=== PATIENT | female | born 1970 | race American Indian/Alaskan Native ===

== ENCOUNTER 2016-11-27 10:30 | Day surgery (SDC) | payer OTHER ==
[2016-11-27] MEDS ORDERED: DEMEROL ONE (11:28)
[2016-11-27] MEDS ORDERED: VERSED IV ONE ×3 (11:28→13:00)
[2016-11-27] MEDS ORDERED: SUBLIMAZE ONE (11:28)
[2016-11-27] MEDS ORDERED: HURRICAINE ONE 20% TOPICAL SPRAY MM (11:28)
[2016-11-27] MEDS ORDERED: SUBLIMAZE IV ONE (11:40)
[2016-11-27] MEDS ORDERED: NACL 0.9% 500 ML 500 ML IV SCH (12:00)
[2016-11-27] MEDS ORDERED: HURRICAINE ONE 20% TOPICAL SPRAY MM NR ×2 (12:00)
[2016-11-27] MEDS ORDERED: DEMEROL IV ONE ×2 (12:00→13:00)
[2016-11-27] MEDS ORDERED: ZOFRAN ONE (12:17)
[2016-11-27] MEDS ORDERED: DEMEROL IV PRN ×2 (13:42→13:43)
[2016-11-27 14:59] VITALS: BP 116/64
== END 2016-11-27 15:20 | disposition home or self-care (01) ==
LOC: OPU 10:30 → EDSTATUS 12:00 → OPU 15:20
PROVIDERS: ATTEND Internal Medicine Cardiovascular Disease
DX: I08.3 Combined rheumatic disorders of mitral, aortic and tricuspid valves (principal)
CPT/HCPCS: 93312; 93320; 93325; J2175; J2250; J3010; J7040; J2405

== ENCOUNTER 2016-12-24 00:33 | Emergency (ER) | payer OTHER ==
[2016-12-24 01:29] LABS: Hematocrit 42.4 % (30.3-42.9); Hemoglobin 13.8 gm/dl (10.1-14.3); Mean Corpuscular HGB Conc 33 % (30-34); Mean Corpuscular Hemoglobin 30 pg (28-32); Mean Corpuscular Volume 92 fl (79-97); Platelet Count 271 K/mm3 (140-440); Red Blood Count 4.62 M/mm3 (3.65-5.03); Red Cell Distribution Width 14.4 % (13.2-15.2); White Blood Count 6.7 K/mm3 (4.5-11.0)
[2016-12-24 02:03] LABS: Anion Gap 18 mmol/L; BUN/Creatinine Ratio 23.75; Blood Urea Nitrogen 19 mg/dL (7-17); Calcium 8.9 mg/dL (8.4-10.2); Carbon Dioxide 24 mmol/L (22-30); Chloride 100.2 mmol/L (98-107); Creatine Kinase 113 units/L (30-135); Glucose 84 mg/dL (65-100); Potassium 4.2 mmol/L (3.6-5.0); Sodium 138 mmol/L (137-145)
--- NOTE | 2016-12-24 03:47 | XRay Report ---
FINAL REPORT PROCEDURE: XR CHEST ROUTINE TWO VIEW PA AND LATERAL TECHNIQUE: PA and lateral chest radiographs were obtained. CPT 84536 A total of 3 films obtained which are 2 PA views and 1 lateral view the chest HISTORY: Shortness of breath COMPARISON: No prior studies are available for comparison. FINDINGS: Heart: Normal. Mediastinum/Vessels: Slightly prominent right hilum is likely due to a slightly prominent pulmonary artery.. Lungs/Pleural space: There is mild central venous congestion but no distinct interstitial edema or focal infiltrate. There is no plain film evidence of significant pleural effusion. There is no plain film evidence of pneumothorax.. Bony thorax: No acute osseous abnormality. Other: There is minimal nonspecific elevation of the right hemidiaphragm. IMPRESSION: 1. There is mild central venous congestion but no distinct interstitial edema. 2. There is no plain film evidence of focal infiltrate significant pleural effusion.
--- NOTE | 2016-12-24 03:54 | XRay Report ---
FINAL REPORT PROCEDURE: XR SHOULDER LEFT SHOULDER THREE VIEWS TECHNIQUE: Three films obtained which are 2 AP views and 1 transscapular lateral view of left shoulder HISTORY: left shoulder pain COMPARISON: No prior studies are available for comparison. FINDINGS: There is no plain film evidence of fracture or dislocation. There is no significant degenerative change. IMPRESSION: There is no plain film evidence of fracture or dislocation or significant degenerative change in the left shoulder.
[2016-12-24 04:11] VITALS: BP 106/63
[2016-12-24] MEDS ORDERED: TORADOL IM ONE (04:18)
--- NOTE | 2016-12-24 04:23 | Emergency Department Report ---
Upper Extremity - HPI Chief Complaint: Extremity Injury, Upper Stated Complaint: LT SHOULDER AND ARM PAIN Time Seen by Provider: 12/24/16 02:06 Upper Extremity: Left Shoulder Occurred When: 4 Days Mechanism: Unsure Severity: moderate Symptoms: Yes Pain with Movement, Yes Bruising/Ecchymosis, No Deformity, No Limited Range of Movement, No Numbness, No Weakness, No Swelling, No Laceration or Abrasion Other History: 46-year-old obese -Romanian female comes in today for complaint of left shoulder pain 4 days. Patient has a past medical history of hypertension. Patient also works as a [employer]. Patient reports that she's had left shoulder pain that is not responding to ibuprofen or Aleve. Patient denies lifting or pulling on anything recent. Patient does have a primary care provider but did not follow-up with him regarding this issue. He reports that pain is worse when she is lying on the left side. She reports at times the pain is burning and throbbing sharp pains. What makes it better is when she stays off of her left side and rest his her arm. Not any recent trauma and no falls has not had anything to her shoulder. ED Review of Systems ROS: Stated complaint: LT SHOULDER AND ARM PAIN Other details as noted in HPI Constitutional: denies: chills, fever Eyes: denies: eye pain, eye discharge, vision change ENT: denies: ear pain, throat pain Respiratory: denies: cough, shortness of breath, wheezing Cardiovascular: denies: chest pain, palpitations Endocrine: no symptoms reported Gastrointestinal: denies: abdominal pain, nausea, diarrhea Genitourinary: denies: urgency, dysuria, discharge Musculoskeletal: arthralgia (left shoulder pain) Skin: denies: rash, lesions Neurological: denies: headache, weakness, paresthesias Psychiatric: denies: anxiety, depression ED Past Medical Hx - Past Medical History Previous Medical History?: Yes Hx Hypertension: Yes - Surgical History Past Surgical History?: Yes Additional Surgical History: Sinus surgery - Social History Smoking Status: Never Smoker Substance Use Type: None - Medications Home Medications: Home Medications Medication Instructions Recorded Confirmed Last Taken Type amLODIPine [Norvasc] 10 mg PO DAILY 11/27/16 12/24/16 1 Day Ago History Naproxen [Naprosyn TAB] 500 mg PO BID #30 tablet 12/24/16 Unknown Rx Upper Extremity Exam - Exam General: Vital signs noted. No distress. Alert and acting appropriately. Head and Torso: No HEENT Abnormality, No Neck Tenderness, No Chest/Lungs Abnormality, No Abdominal Tenderness, No Back Tenderness Shoulder Exam: Yes Normal Range of Motion in Shoulder, No Shoulder Tenderness ( pain in the scapular area lateral portion), No Clavicle Tenderness, No Shoulder Deformity, No AC Joint Tenderness Arm Exam: No Arm/Humerus Tenderness, No Arm Deformity Elbow: Yes Normal Range of Motion in Elbow, No Elbow Tenderness, No Elbow Deformity Forearm: No Forearm Tenderness, No Forearm Deformity, No Pain with Pronation, No Pain with Supination Wrist: Yes Normal ROM in Wrist, No Wrist Tenderness, No Wrist Deformity, No Snuffbox Tenderness, No Pain with Axial Thumb Compression Hand: Yes Normal ROM in Digit(s), No Hand Tenderness, No Hand Deformity, No Digit Tenderness, No Digit(s) Deformity, No Tendon Dysfunction CMS Exam: Yes Normal Distal Pulses, Yes Normal Capillary Refill, No Broken Skin ED Course Vital Signs 12/24/16 04:10 Pulse Rate 70 Respiratory 20 Rate Blood Pressure 106/63 [Right] O2 Sat by Pulse 97 Oximetry ED Medical Decision Making - Lab Data Result diagrams: 12/24/16 01:16 12/24/16 01:16 - Radiology Data Radiology results: report reviewed, image reviewed There is no plain film evidence of fracture or dislocation or significant degenerative changes in the left shoulder - Medical Decision Making Assessment evaluated by this provider fast track. Discussed with patient that we will give her Toradol injection. Also discussed with patient that she needs to be evaluated by her primary care provider who may then can recommend her to physical therapy. Discussed patient to take ibuprofen or naproxen for pain control. Discussed with patient that lifting and pulling of patient's picking up heavy objects may aggravate her pain. Patient verbalized understanding Critical care attestation.: If time is entered above; I have spent that time in minutes in the direct care of this critically ill patient, excluding procedure time. ED Disposition Clinical Impression: Morbid obesity with body mass index of 50 or higher, Pain of left scapula Disposition: DISCHARGED TO HOME OR SELFCARE Is pt being admited?: No Does the pt Need Aspirin: No Condition: Stable Instructions: Shoulder Sprain (ED) Additional Instructions: These take the pain medication as prescribed. Please follow up to primary care provider for further evaluations and possible physical therapy. Prescriptions: Naproxen [Naprosyn TAB] 500 mg PO BID #30 tablet Referrals: PRIMARY CARE, [Primary Care Provider] - 3-5 Days Forms: Work/School Release Form(ED)
== END 2016-12-24 04:41 | disposition home or self-care (01) ==
LOC: ED 00:33
DX: M25.512 Pain in left shoulder (principal); E66.01 Morbid (severe) obesity due to excess calories; Z68.43 Body mass index [BMI] 50.0-59.9, adult; I10 Essential (primary) hypertension
CPT/HCPCS: 36415; 71020; 73030; 80048; 82550; 82553; 84484; 85025; 93005; 93010; 96372; 99284; J1885

== ENCOUNTER 2017-04-22 08:16 | Day surgery (SDC) | payer OTHER ==
[2017-04-22] MEDS ORDERED: ECOTRIN PO ONE (09:00)
[2017-04-22] MEDS ORDERED: NACL 0.9% 500 ML 500 ML IV SCH (09:00)
[2017-04-22 09:50] LABS: Basophils % (Auto) 0.8 % (0.0-1.8); Eosinophils % (Auto) 2.3 % (0.0-4.3); Hematocrit 40.6 % (30.3-42.9); Mean Corpuscular HGB Conc 32 % (30-34); Mean Corpuscular Hemoglobin 29 pg (28-32); Mean Corpuscular Volume 92 fl (79-97); Platelet Count 259 K/mm3 (140-440); Red Blood Count 4.43 M/mm3 (3.65-5.03); White Blood Count 5.4 K/mm3 (4.5-11.0)
[2017-04-22 09:57] LABS: Anion Gap 16 mmol/L; BUN/Creatinine Ratio 16.66; Blood Urea Nitrogen 10 mg/dL (7-17); Calcium 8.4 mg/dL (8.4-10.2); Carbon Dioxide 27 mmol/L (22-30); Chloride 102.7 mmol/L (98-107); Glucose 93 mg/dL (65-100); Potassium 4.5 mmol/L (3.6-5.0); Sodium 141 mmol/L (137-145)
[2017-04-22 10:00] LABS: INR 0.96 (0.87-1.13)
[2017-04-22] MEDS ORDERED: HEPARIN/NS 5000 UNIT/500ML(CATH LAB) 1,000 ML IR ONE (10:20)
[2017-04-22] MEDS: SUBLIMAZE ONE ×3 (10:45→11:05)
[2017-04-22] MEDS: HEPARIN 10,000 UNITS/10 ML ONE ×2 (10:45→11:04)
[2017-04-22] MEDS: VERSED ONE ×3 (10:45→11:05)
[2017-04-22] MEDS: CALAN ONE ×2 (10:45→11:04)
[2017-04-22] MEDS: XYLOCAINE 2% INFILTRATI ONE ×2 (10:46→10:56)
[2017-04-22] MEDS: NITROGLYCERIN SYRINGE 3 ML ONE ×2 (10:46→11:04)
--- NOTE | 2017-04-22 11:26 | Short Stay Summary ---
Short Stay Documentation Date of service: 04/22/17 - History H&P: obtained from office - Allergies and Medications Current Medications: Allergies No Known Allergies Allergy (Verified 04/22/17 08:49) Home Medications Medication Instructions Recorded Confirmed Last Taken Type amLODIPine [Norvasc] 10 mg PO DAILY 11/27/16 04/22/17 04/21/17 History Aspirin [Aspirin TAB] 325 mg PO QDAY 04/22/17 04/22/17 04/21/17 History Active Medications Sodium Chloride (Nacl 0.9% 500 Ml) 500 mls @ 50 mls/hr IV DIRECT SHANNON Stop: 04/22/17 18:59 Last Admin: 04/22/17 10:16 Dose: 50 mls/hr - Brief post op/procedure progress note Date of procedure: 04/22/17 Pre-op diagnosis: MS Post-op diagnosis: same Procedure: C - see cath report Anesthesia: local Estimated blood loss: none Condition: stable - Disposition Condition at discharge: Stable Disposition: DC-01 TO HOME OR SELFCARE - Discharge Diagnoses (1) Mitral stenosis Status: Chronic Qualifiers: Cardiac valve disease etiology: C Short Stay Discharge Plan Activity: advance as tolerated Diet: low fat, low cholesterol, low salt Wound: open to air, keep clean and dry, per your surgeon's advice Follow up with: CARRIE RICHMOND MD [Staff Physician] - 7 Days
--- NOTE | 2017-04-22 12:40 | Cardiac Catherization Report ---
CARDIAC CATHETERIZATION REFERRING PHYSICIAN: Jas Monroe MD INDICATION FOR PROCEDURE: The patient is a pleasant 46-year-old female who has a history of mitral stenosis, seen Dr. Monroe and seen Dr. Macias at [place] and is scheduled to undergo mitral valve replacement for severe mitral stenosis. She is referred for left heart catheterization and coronary angiography in anticipation of the same. Risks, benefits, and alternatives discussed prior to obtaining informed consent. PROCEDURE IN DETAIL: The patient was brought to catheterization lab in a postabsorptive state, prepped and draped in sterile fashion. Jimmy's test in right hand was normal. A 2 mL of 2% lidocaine used to anesthetize the right wrist. A standard 6-[place] hydrophilic sheath used to cannulate the right radial artery via modified Seldinger technique. All exchanges performed to exchange a J-tip guidewire. JL3.5 catheter used to engage the left main. No dampening or ventricularization. Cineangiography performed in multiple projections. JR4 catheter used to cross the aortic valve under fluoroscopic guidance. Left ventriculography performed in 30 BROWN and 30 ORESTES projections via hand injections, catheter flushed. Manual pullback performed with continuous pressure monitoring. Catheter used to engage the right coronary. No dampening or ventricularization. Cineangiography performed in all projections. Next, catheter removed from the body of wire, sheath removed, manual pressured used to achieve hemostasis. DATA: Aortic pressure is 120/70, LV pressure is 120, LVEDP of 15 mmHg. Left ventriculography revealed normal systolic performance with estimated ejection fraction of 55% to 60%. No evidence of aortic stenosis. CORONARY ANATOMY: This is a codominant system. The left circumflex and left anterior descending appeared to have a separate ostia or a very short left main. The left circumflex is a moderate sized vessel, no significant disease. LAD is a moderate sized vessel, courses the anterior interventricular groove, wraps around the apex, no significant disease. The right coronary is a moderate sized vessel, courses AV groove, distally bifurcates in the posterior descending and posterolateral branch. No discrete stenosis identified. CONCLUSIONS: 1. No angiographic evidence of significant epicardial coronary artery disease in this codominant system. 2. Normal left ventricular systolic performance with estimated ejection fraction of 55% to 60%. No evidence of aortic stenosis. The patient will follow up with Dr. Monroe and Dr. Dennison. Results of procedure explained in length to the patient and family. All questions and concerns were addressed. JOB# [id number] MAMIE/NTS
[2017-04-22 13:29] VITALS: BP 117/77
== END 2017-04-22 14:05 | disposition home or self-care (01) ==
LOC: CATHLABREC 08:16
PROVIDERS: ATTEND Internal Medicine
DX: I05.0 Rheumatic mitral stenosis (principal); I10 Essential (primary) hypertension; E66.01 Morbid (severe) obesity due to excess calories; Z68.43 Body mass index [BMI] 50.0-59.9, adult; Z98.890 Other specified postprocedural states; Z79.899 Other long term (current) drug therapy; Z72.89 Other problems related to lifestyle; Z79.82 Long term (current) use of aspirin
CPT/HCPCS: 36415; 80048; 85025; 85610; 85730; 93005; 93010; 93458; C1894; J1644; J2250; J3010; J7040; Q9967

== ENCOUNTER 2017-06-22 18:18 | Emergency (ER) | payer OTHER ==
[2017-06-22 19:03] LABS: Basophils % (Auto) 1.2 % (0.0-1.8); Eosinophils % (Auto) 3.1 % (0.0-4.3); Hematocrit 29.1 % (30.3-42.9); Hemoglobin 9.5 gm/dl (10.1-14.3); Mean Corpuscular HGB Conc 33 % (30-34); Mean Corpuscular Hemoglobin 29 pg (28-32); Mean Corpuscular Volume 88 fl (79-97); Platelet Count 626 K/mm3 (140-440); Red Cell Distribution Width 15.5 % (13.2-15.2)
[2017-06-22 19:15] LABS: INR 2.43 (0.87-1.13)
[2017-06-22 19:16] LABS: Partial Thromboplastin Time 47.8 Sec. (24.2-36.6)
[2017-06-22 19:21] LABS: Anion Gap 19 mmol/L; BUN/Creatinine Ratio 15; Blood Urea Nitrogen 9 mg/dL (7-17); Calcium 8.8 mg/dL (8.4-10.2); Carbon Dioxide 25 mmol/L (22-30); Chloride 99.8 mmol/L (98-107); Glucose 119 mg/dL (65-100); Potassium 3.9 mmol/L (3.6-5.0); Sodium 140 mmol/L (137-145)
[2017-06-22 19:24] LABS: Creatine Kinase MB 2.1 ng/mL (0.0-4.0)
[2017-06-22] MEDS ORDERED: MORPHINE IV ONE (20:25)
--- NOTE | 2017-06-22 20:50 | Emergency Department Report ---
ED Chest Pain HPI - General Chief Complaint: Chest Pain Stated Complaint: CHEST PAIN Time Seen by Provider: 06/22/17 20:45 Source: patient, EMS Mode of arrival: Stretcher Limitations: No Limitations - History of Present Illness Initial Comments: 47 YO FEMALE WITH MITRAL VALVE REPLACEMENT DONE BY DR ROMEO ON 06-06-17 AT [facility], HERE WITH C/O CHEST PAIN . DENIES SHORT OF BREATH, NO NAUSEA, VOMITING. MD Complaint: chest pain -: Sudden, hour(s) (1) Onset: during rest Pain Location: substernal Pain Radiation: LUE Severity: moderate, severe Severity scale (0 -10): 3 Quality: heaviness, pressure Consistency: constant (but decreasing) Improves With: nothing Worsens With: movement - Related Data Home Medications Medication Instructions Recorded Confirmed Last Taken amLODIPine [Norvasc] 10 mg PO DAILY 11/27/16 04/22/17 04/21/17 Aspirin [Aspirin TAB] 325 mg PO QDAY 04/22/17 04/22/17 04/21/17 Allergies Allergy/AdvReac Type Severity Reaction Status Date / Time No Known Allergies Allergy Verified 04/22/17 08:49 Heart Score - HEART Score History: Highly suspicious EKG: Non-specific Age: 45-65 Risk factors: > 3 risk factors or hx of atherosclerotic disease Troponin: < normal limit HEART Score: 6 ED Review of Systems ROS: Stated complaint: CHEST PAIN Other details as noted in HPI Constitutional: denies: chills, fever Eyes: denies: eye pain, eye discharge, vision change ENT: denies: ear pain, throat pain Respiratory: denies: cough, orthopnea (but taking shallow breaths), shortness of breath, SOB with exertion, SOB at rest, wheezing Cardiovascular: denies: chest pain, palpitations, dyspnea on exertion (pt has not ambulated at home since discharge) Endocrine: no symptoms reported Gastrointestinal: denies: abdominal pain, nausea, diarrhea Genitourinary: denies: urgency, dysuria, discharge Musculoskeletal: denies: back pain, joint swelling, arthralgia Skin: denies: rash, lesions Neurological: denies: headache, weakness, paresthesias Psychiatric: anxiety. denies: depression Hematological/Lymphatic: denies: easy bleeding, easy bruising ED Past Medical Hx - Past Medical History Previous Medical History?: Yes Hx Hypertension: Yes - Surgical History Past Surgical History?: Yes Additional Surgical History: ,mitral valve replacement 06-06-17 at [facility] ; mechanical mitral valve; Sinus surgery - Social History Smoking Status: Never Smoker - Medications Home Medications: Home Medications Medication Instructions Recorded Confirmed Last Taken Type amLODIPine [Norvasc] 10 mg PO DAILY 11/27/16 04/22/17 04/21/17 History Aspirin [Aspirin TAB] 325 mg PO QDAY 04/22/17 04/22/17 04/21/17 History ED Physical Exam - General Limitations: No Limitations General appearance: alert, in no apparent distress, anxious, obese (morbidly) - Head Head exam: Present: atraumatic, normocephalic - Eye Eye exam: Present: normal appearance - ENT ENT exam: Present: mucous membranes moist - Neck Neck exam: Present: normal inspection - Respiratory Respiratory exam: Present: normal lung sounds bilaterally, chest wall tenderness (frensh surgical incision, pus from incision near right breast). Absent: respiratory distress - Cardiovascular Cardiovascular Exam: Present: regular rate, normal rhythm. Absent: systolic murmur, diastolic murmur, rubs, gallop - GI/Abdominal GI/Abdominal exam: Present: soft, normal bowel sounds - Rectal Rectal exam: Present: deferred - Extremities Exam Extremities exam: Present: normal inspection - Back Exam Back exam: Present: normal inspection - Neurological Exam Neurological exam: Present: alert, oriented X3 - Psychiatric Psychiatric exam: Present: normal affect, normal mood - Skin Skin exam: Present: warm, normal color, other (midline sternotomy incision with rafa in place , right lower incision near right breast with pus drainage, excoriated breasts withthe right greater thanthe legft). Absent: rash ED Course Vital Signs 06/22/17 06/22/17 18:34 19:30 Temperature 98.2 F Pulse Rate 83 Respiratory 22 Rate Blood Pressure 152/98 Blood Pressure 136/62 [Left] O2 Sat by Pulse 99 Oximetry ED Medical Decision Making - Lab Data Result diagrams: 06/22/17 18:54 06/22/17 18:54 Critical care attestation.: If time is entered above; I have spent that time in minutes in the direct care of this critically ill patient, excluding procedure time. ED Disposition Clinical Impression: Chest pain Qualifiers: Chest pain type: other chest pain Qualified Code(s): R07.89 - Other chest pain ; R07.8 - Other chest pain Infected incision Qualifiers: Encounter type: initial encounter Qualified Code(s): T81.4XXA - Infection following a procedure, initial encounter Anemia Qualifiers: Anemia type: unspecified type Qualified Code(s): D64.9 - Anemia, unspecified Disposition: DC/TX-70 ANOTHER TYPE HLTHCARE Is pt being admited?: Yes Does the pt Need Aspirin: Yes Condition: Serious Instructions: Chest Pain (ED) Referrals: LORA PALOMO MD [Primary Care Provider] - 3-5 Days Time of Disposition: 20:57 (DR EDWARDS FROM [facility] A CARDIO THORACIC SURGEON HAS ACCEPTED ANDARRANGED A BED FOR HER.)
[2017-06-22 21:13] VITALS: BP 122/78
== END 2017-06-22 21:14 | disposition other institution (70) ==
LOC: ED 18:18
DX: R07.2 Precordial pain (principal); T81.4XXA Infection following a procedure, initial encounter; D64.9 Anemia, unspecified; I10 Essential (primary) hypertension; Z79.82 Long term (current) use of aspirin
CPT/HCPCS: 36415; 80048; 82550; 82553; 84484; 85025; 85379; 85610; 85730; 93005; 93010; 96374; 99285; J2270

== ENCOUNTER 2017-11-19 07:29 | Inpatient (IN) | payer OTHER ==
--- NOTE | 2017-11-19 08:25 | XRay Report ---
ROUTINE CHEST, TWO VIEWS: HISTORY: Shortness of breath. Compared to 12/24/16. There is poor inspiration with minor bibasilar atelectatic changes. No evidence for infiltrate, pleural effusion or pneumothorax. Heart size is stable at the upper limits of normal. Normal pulmonary vascularity. The bony structures are grossly intact. Previous thoracic surgery changes are noted, correlate with history. IMPRESSION: Unremarkable chest x-ray. Poor inspiration with mild bibasilar atelectasis.
[2017-11-19 08:32] LABS: Basophils % (Auto) 0.8 % (0.0-1.8); Eosinophils # (Auto) 0.2 K/mm3 (0.0-0.4); Hematocrit 43.6 % (30.3-42.9); Hemoglobin 13.9 gm/dl (10.1-14.3); Lymphocytes # (Auto) 1.9 K/mm3 (1.2-5.4); Lymphocytes % (Auto) 36.1 % (13.4-35.0); Mean Corpuscular HGB Conc 32 % (30-34); Mean Corpuscular Hemoglobin 26 pg (28-32); Mean Corpuscular Volume 83 fl (79-97); Monocytes # (Auto) 0.7 K/mm3 (0.0-0.8); Platelet Count 256 K/mm3 (140-440); Red Blood Count 5.26 M/mm3 (3.65-5.03); Red Cell Distribution Width 22.1 % (13.2-15.2)
[2017-11-19 08:33] LABS: BUN/Creatinine Ratio 16; Blood Urea Nitrogen 11 mg/dL (7-17); Calcium 8.8 mg/dL (8.4-10.2); Hemolysis Index 10
[2017-11-19] MEDS ORDERED: DUONEB *Not for PRN Use IH ONE (10:20)
[2017-11-19 10:50] LABS: INR 1.96 (0.87-1.13)
[2017-11-19 10:51] LABS: Partial Thromboplastin Time 33.5 Sec. (24.2-36.6)
--- NOTE | 2017-11-19 11:09 | Emergency Department Report ---
HPI - General Chief Complaint: Dyspnea/Respdistress Time Seen by Provider: 11/19/17 10:03 - HPI HPI: 47-year-old female presents to the emergency department after being sent in by her injection specialist, Dr. Ramirez, with a complaint of acute on chronic shortness of breath. Patient has a history of hypertension, GERD, sleep apnea, COPD versus chronic bronchitis, and a history of mitral valve replacement in June at [facility]. Her primary care physician is Dr. Alvin Clark and her manpower development manager is Dr. Monroe. The shortness of breath has been going on for many months but more recently it has worsened. The shortness of breath worsens with exertion and sometimes she has trouble going short distances without increased shortness of breath. She also has been having some increased lower extremity swelling. No recent travel or sick contacts at home. She denies any fever, chest pain, cough, nausea, vomiting. She has been using some inhaler and nebulizer treatments at home with some transient relief. ED Past Medical Hx - Past Medical History Previous Medical History?: Yes Hx Hypertension: Yes Hx GERD: Yes Hx COPD: Yes Additional medical history: Sleep apnea - Surgical History Past Surgical History?: Yes Additional Surgical History: ,mitral valve replacement 06-06-17 at [facility] ; mechanical mitral valve; Sinus surgery - Social History Smoking Status: Former Smoker Substance Use Type: Alcohol, Marijuana, Prescribed - Medications Home Medications: Home Medications Medication Instructions Recorded Confirmed Last Taken Type Aspirin [Aspirin TAB] 325 mg PO QDAY 04/22/17 11/19/17 11/19/17 History ALBUTEROL Inhaler [Proair] 2 puff IH QID PRN 11/19/17 11/19/17 11/19/17 History Aspirin [Lo-Dose Aspirin EC] 81 mg PO DAILY 11/19/17 11/19/17 11/19/17 History Metoprolol [Lopressor] 25 mg PO DAILY 11/19/17 11/19/17 11/19/17 History Multivitamin with Folic Acid [One 400 mcg PO DAILY 11/19/17 11/19/17 11/19/17 History Daily Multivitamin Tablet] Warfarin [Coumadin] 7.5 mg PO QDAY 11/19/17 11/19/17 11/19/17 History ED Review of Systems ROS: Stated complaint: SOB Other details as noted in HPI Comment: All other systems reviewed and negative Constitutional: denies: chills, fever Eyes: denies: eye pain, eye discharge, vision change ENT: denies: ear pain, throat pain Respiratory: shortness of breath, SOB with exertion Cardiovascular: edema. denies: chest pain, palpitations Gastrointestinal: denies: abdominal pain, nausea, diarrhea Genitourinary: denies: urgency, dysuria, discharge Musculoskeletal: denies: back pain, joint swelling, arthralgia Skin: denies: rash, lesions Neurological: denies: headache, weakness, paresthesias Physical Exam - Physical Exam Vital Signs: Vital Signs 11/19/17 11/19/17 11/19/17 07:46 10:21 10:35 Temperature 98.3 F 98.2 F Pulse Rate 70 55 L Respiratory 18 16 Rate Blood Pressure 150/95 Blood Pressure 175/93 [Left] O2 Sat by Pulse 96 96 96 Oximetry Physical Exam: GENERAL: The patient is well-developed well-nourished. HENT: Normocephalic. Atraumatic. Patient has moist mucous membranes. EYES: Extraocular motions are intact. Pupils equal reactive to light bilaterally. NECK: Supple. Trachea is midline. CHEST/LUNGS: Clear to auscultation. There is no respiratory distress noted. HEART/CARDIOVASCULAR: Regular. There is no tachycardia. There is no murmur. ABDOMEN: Abdomen is soft, nontender. Patient has normal bowel sounds. Morbidly obese habitus. SKIN: 2+ pitting edema to the bilateral lower extremities. NEURO: The patient is awake, alert, and oriented. The patient is cooperative. The patient has no focal neurologic deficits. The patient has normal speech. MUSCULOSKELETAL: There is no tenderness or deformity. There is no limitation range of motion. There is no evidence of acute injury. ED Course Vital Signs 11/19/17 11/19/17 11/19/17 07:46 10:21 10:35 Temperature 98.3 F 98.2 F Pulse Rate 70 55 L Respiratory 18 16 Rate Blood Pressure 150/95 Blood Pressure 175/93 [Left] O2 Sat by Pulse 96 96 96 Oximetry ED Medical Decision Making - Lab Data Result diagrams: 11/19/17 08:08 11/19/17 08:08 - EKG Data -: EKG Interpreted by Me EKG shows normal: sinus rhythm, axis, intervals, QRS complexes, ST-T waves Rate: normal - EKG Data When compared to previous EKG there are: previous EKG unavailable Interpretation: normal EKG - Radiology Data Radiology results: image reviewed interpreted by me: Chest x-ray does not show any acute process. There are no pleural effusions, obvious pneumonia and there is no pneumothorax. - Medical Decision Making Patient presents with acute on chronic shortness of breath and some lower extremity edema, sent in by pulmonology. Labs are mostly unremarkable. She does have a BNP of about 450 and does have some lower extremity edema but no pleural effusions on chest x-ray. Patient is pretty much therapeutic on her warfarin and therefore there is a low suspicion of pulmonary embolism as the source of her shortness of breath. Chest x-ray does not show any pneumonia, pneumothorax or any other acute processes. EKG does not show any ST elevation MA. As the patient was sent in by her injection specialist for further evaluation and treatment, we will keep her in the hospital. - Differential Diagnosis Pneumonia, CHF, COPD, Obesity hypoventilation syndrome Critical Care Time: No Critical care attestation.: If time is entered above; I have spent that time in minutes in the direct care of this critically ill patient, excluding procedure time. ED Disposition Clinical Impression: Lower extremity edema, Anticoagulant long-term use, Morbidly obese Hypertension Qualifiers: Hypertension type: essential hypertension Qualified Code(s): I10 - Essential ( primary) hypertension Dyspnea Qualifiers: Dyspnea type: shortness of breath Qualified Code(s): R06.02 - Shortness of breath; R06.00 - Dyspnea, unspecified; R06.01 - Orthopnea Disposition: OP ADMIT IP TO THIS HOSP Is pt being admited?: Yes Condition: Stable Time of Disposition: 14:06
--- NOTE | 2017-11-19 12:24 | History and Physical Report ---
History of Present Illness Chief complaint: I cant breathe right History of present illness: 47 YO Female with MO, Pulmonary HTN, HTN, GERD, CLINT, Obesity Hypoventillation, MVS S/P MVR at [facility] 06/17. presents to ED for evaluation. Pt states that she has experienced shortness of breath for the past 2 months with worsening symptoms over the past 1 week. Pt acknowledges dypsnea with exertion, decreased exercise tolerance, and bilateral leg swelling. Pt denies fever, chills, CP, Palpitations, NVD, Trauma, BRBPR, Recent ill contacts, productive cough, unilateral leg swelling, calf pain, prolonged travel/immobility, individual/family history of DVT/PE, hemoptysis. Pt seen and evaluated in ED and found to have Acute respiratory failure, as well as hypertensive urgency, as well as pulmonary hypertension. Pt admitted to medical floor with remote telemetry. Cardiology consulted in ED. Past History Past Medical History: GERD, hypertension, other (Pulmonary Hypertension, obesity Hypoventillation, CLINT,MVS) Past Surgical History: valve replacement Social history: single. denies: smoking, alcohol abuse, prescription drug abuse Family history: hypertension Medications and Allergies Allergies Allergy/AdvReac Type Severity Reaction Status Date / Time No Known Allergies Allergy Verified 04/22/17 08:49 Home Medications Medication Instructions Recorded Confirmed Last Taken Type Aspirin [Aspirin TAB] 325 mg PO QDAY 04/22/17 11/19/17 11/19/17 History ALBUTEROL Inhaler [Proair] 2 puff IH QID PRN 11/19/17 11/19/17 11/19/17 History Aspirin [Lo-Dose Aspirin EC] 81 mg PO DAILY 11/19/17 11/19/17 11/19/17 History Metoprolol [Lopressor] 25 mg PO DAILY 11/19/17 11/19/17 11/19/17 History Multivitamin with Folic Acid [One 400 mcg PO DAILY 11/19/17 11/19/17 11/19/17 History Daily Multivitamin Tablet] Warfarin [Coumadin] 7.5 mg PO QDAY 11/19/17 11/19/17 11/19/17 History Review of Systems Constitutional: no weight loss, no weight gain, no fever, no chills Ears, nose, mouth and throat: no ear pain, no ear discharge, no tinnitis, no decreased hearing, no nose pain, no nasal congestion Breasts: no change in shape, no swelling, no mass Cardiovascular: edema, shortness of breath, dyspnea on exertion, high blood pressure, no chest pain, no orthopnea, no palpitations, no paroxysmal nocturnal dyspnea Respiratory: no cough, no cough with sputum, no excessive sputum, no hemoptysis Gastrointestinal: no nausea, no vomiting, no diarrhea, no constipation, no change in bowel habits Genitourinary Female: no dysmenorrhea, no pelvic pain, no flank pain, no menorrhagia, no dysuria, no urinary frequency, no urgency Rectal: no pain, no incontinence, no bleeding Musculoskeletal: no neck stiffness, no neck pain, no shooting arm pain, no arm numbness/tingling, no low back pain, no shooting leg pain, no leg numbness/ tingling Integumentary: no rash, no pruritis, no redness, no sores, no wounds, no jaundice, no boils Neurological: no transient paralysis, no paralysis, no weakness, no parathesias , no numbness, no tingling, no seizures, no syncope Psychiatric: no anxiety, no memory loss, no change in sleep habits, no insomnia , no hypersomnia, no change in appetite Endocrine: no cold intolerance, no heat intolerance, no polyphagia, no excessive thirst, no polydipsia, no polyuria, no nocturia, no excessive sweating Hematologic/Lymphatic: no easy bruising, no easy bleeding, no lymphadenopathy, no lymphedema Allergic/Immunologic: no urticaria, no allergic rhinitis, no wheezing, no persistent infections, no anaphylaxis, no angioedema Exam - Constitutional Vitals: Temp Pulse Resp BP Pulse Ox 98.2 F 60 13 187/94 96 11/19/17 10:35 11/19/17 12:00 11/19/17 12:00 11/19/17 12:00 11/19/17 12:00 General appearance: Present: mild distress, obese - EENT Eyes: Present: PERRL ENT: hearing intact, clear oral mucosa - Neck Neck: Present: supple, normal ROM - Respiratory Respiratory effort: normal Respiratory: bilateral: diminished - Cardiovascular Heart Sounds: Present: S1 & S2. Absent: rub, click - Extremities Extremities: pulses symmetrical, No edema Extremity abnormal: edema Peripheral Pulses: within normal limits - Abdominal General gastrointestinal: Present: soft, non-tender, non-distended, normal bowel sounds Female genitourinary: Present: normal - Integumentary Integumentary: Present: clear, warm, dry - Musculoskeletal Musculoskeletal: gait normal, strength equal bilaterally - Psychiatric Psychiatric: appropriate mood/affect, intact judgment & insight - Neurologic Neurologic: CNII-XII intact, moves all extremities Results - Labs CBC & Chem 7: 11/19/17 08:08 11/19/17 08:08 Labs: Abnormal lab results 11/19/17 11/19/17 11/19/17 Range/Units 08:08 08:08 08:08 RBC 5.26 H (3.65-5.03) M/mm3 Hct 43.6 H (30.3-42.9) % MCH 26 L (28-32) pg RDW 22.1 H (13.2-15.2) % Lymph % (Auto) 36.1 H (13.4-35.0) % [place] % (Auto) 13.0 H (0.0-7.3) % PT 23.6 H (12.2-14.9) Sec. INR 1.96 H (0.87-1.13) NT-Pro-B Natriuret Pep 458.6 H (0-450) pg/mL Assessment and Plan - Patient Problems (1) Respiratory failure Current Visit: Yes Status: Acute Qualifiers: Chronicity: acute Respiratory failure complication: hypoxia Qualified Code(s): J96.01 - Acute respiratory failure with hypoxia Plan to address problem: Supplemental oxygen, nebulizer therapy, pulse oximetry, NIPPV as clinically indicated, (2) COPD with exacerbation Current Visit: Yes Status: Acute Plan to address problem: supplemental oxygen, nebulizer therapy, IV antibiotic therapy, IV steroid therapy, (3) Pulmonary hypertension Current Visit: Yes Status: Acute Plan to address problem: supplemental oxygen, pain control, outpatient pulmonary f/U care. (4) Mitral valve disease Current Visit: Yes Status: Acute Plan to address problem: Cardiology consulted, supplemental oxygen, supportive care (5) Morbidly obese Current Visit: Yes Status: Acute Plan to address problem: balanced diet, increased physical activity at discharge, Outpatient bariatric surgery f/u. (6) Obesity hypoventilation syndrome Current Visit: Yes Status: Acute Plan to address problem: supplemental oxygen, nebulizer therapy, NIPPV as clinically indicated, incentive spirometry, pulmonary toilet. (7) DVT prophylaxis Current Visit: No Status: Acute
[2017-11-19] MEDS ORDERED: PROVENTIL IH PRN (12:27)
[2017-11-19] MEDS ORDERED: SODIUM CHLORIDE FLUSH SYRINGE 10 ML IV PRN (12:27)
[2017-11-19] MEDS ORDERED: TYLENOL PO PRN (12:27)
[2017-11-19] MEDS ORDERED: ZOFRAN IV PRN (12:27)
[2017-11-19] MEDS ORDERED: MAGNESIUM SULFATE IV ONE (12:31)
[2017-11-19] MEDS ORDERED: PROAIR IH PRN (12:32)
[2017-11-19] MEDS ORDERED: MAGNESIUM SULFATE 1 GM in NACL 0.9% 50 ML IV ONE (14:00)
[2017-11-19] MEDS ORDERED: LOPRESSOR ONE (14:59)
[2017-11-19] MEDS ORDERED: THERAGRAN Tab PO ONE (14:59)
[2017-11-19] MEDS: ASPIRIN PO SCH (15:25)
[2017-11-19] MEDS: LOPRESSOR PO SCH (15:25)
[2017-11-19] MEDS: THERAGRAN Tab PO SCH (15:25)
[2017-11-19] MEDS: COUMADIN PO SCH (17:07)
[2017-11-19] MEDS: SODIUM CHLORIDE FLUSH SYRINGE 10 ML IV SCH (22:21)
[2017-11-20 06:00] LABS: INR 2.23 (0.87-1.13)
[2017-11-20] MEDS: ASPIRIN PO SCH (09:12)
[2017-11-20] MEDS: LOPRESSOR PO SCH ×2 (09:13→22:30)
[2017-11-20] MEDS: ZITHROMAX 500 MG in NACL 0.9% 250ML 250 ML IV SCH ×3 (09:30→09:31)
--- NOTE | 2017-11-20 09:38 | Progress Note ---
Assessment and Plan Assessment and plan: Acute hypoxemic Respiratory failure Supplemental oxygen, nebulizer therapy, pulse oximetry, NIPPV as clinically indicated. CTA of the chest pending. Pulmonary consultation. COPD with exacerbation supplemental oxygen, nebulizer therapy, IV antibiotic therapy, IV steroid therapy, Pulmonary hypertension supplemental oxygen, pain control, outpatient pulmonary f/U care. CTA of the chest pending. Patient currently on Coumadin Mitral valve disease Cardiology consulted, supplemental oxygen, supportive care. S/P MVR at [facility] 06/17 for mitral valve stenosis Morbidly obese balanced diet, increased physical activity at discharge, Outpatient bariatric surgery f/u. Obesity hypoventilation syndrome supplemental oxygen, nebulizer therapy, NIPPV as clinically indicated, incentive spirometry, pulmonary toilet. DVT prophylaxis Patient on Coumadin History Interval history: No new issues overnight. Hospitalist Physical - Constitutional Vitals: Temp Pulse Resp BP Pulse Ox 97.6 F 67 22 166/69 96 11/20/17 07:59 11/20/17 07:59 11/20/17 07:59 11/20/17 07:59 11/20/17 07:59 General appearance: Present: no acute distress, obese - EENT Eyes: Present: PERRL, EOM intact ENT: hearing intact, clear oral mucosa, dentition normal - Neck Neck: Present: supple, normal ROM - Respiratory Respiratory effort: normal Respiratory: bilateral: CTA - Cardiovascular Rhythm: regular Heart Sounds: Present: S1 & S2. Absent: gallop, rub - Extremities Extremities: no ischemia, No edema, Full ROM - Abdominal General gastrointestinal: soft, non-tender, non-distended, normal bowel sounds - Integumentary Integumentary: Present: clear, warm, dry - Neurologic Neurologic: CNII-XII intact, moves all extremities Results - Labs CBC & Chem 7: 11/19/17 08:08 11/19/17 08:08 Labs: Laboratory Last Values WBC 5.4 K/mm3 (4.5-11.0) 11/19/17 08:08 RBC 5.26 M/mm3 (3.65-5.03) H 11/19/17 08:08 Hgb 13.9 gm/dl (10.1-14.3) 11/19/17 08:08 Hct 43.6 % (30.3-42.9) H 11/19/17 08:08 MCV 83 fl (79-97) 11/19/17 08:08 MCH 26 pg (28-32) L 11/19/17 08:08 MCHC 32 % (30-34) 11/19/17 08:08 RDW 22.1 % (13.2-15.2) H 11/19/17 08:08 Plt Count 256 K/mm3 (140-440) 11/19/17 08:08 Lymph % (Auto) 36.1 % (13.4-35.0) H 11/19/17 08:08 [place] % (Auto) 13.0 % (0.0-7.3) H 11/19/17 08:08 Eos % (Auto) 3.0 % (0.0-4.3) 11/19/17 08:08 Baso % (Auto) 0.8 % (0.0-1.8) 11/19/17 08:08 Lymph # 1.9 K/mm3 (1.2-5.4) 11/19/17 08:08 [place] # 0.7 K/mm3 (0.0-0.8) 11/19/17 08:08 Eos # 0.2 K/mm3 (0.0-0.4) 11/19/17 08:08 Baso # 0.0 K/mm3 (0.0-0.1) 11/19/17 08:08 Seg Neutrophils % 47.1 % (40.0-70.0) 11/19/17 08:08 Seg Neutrophils # 2.5 K/mm3 (1.8-7.7) 11/19/17 08:08 PT 26.2 Sec. (12.2-14.9) H 11/20/17 05:40 INR 2.23 (0.87-1.13) H 11/20/17 05:40 APTT 33.5 Sec. (24.2-36.6) 11/19/17 08:08 Sodium 139 mmol/L (137-145) 11/19/17 08:08 Potassium 4.6 mmol/L (3.6-5.0) 11/19/17 08:08 Chloride 99.4 mmol/L (98-107) 11/19/17 08:08 Carbon Dioxide 30 mmol/L (22-30) 11/19/17 08:08 Anion Gap 14 mmol/L 11/19/17 08:08 BUN 11 mg/dL (7-17) 11/19/17 08:08 Creatinine 0.7 mg/dL (0.7-1.2) 11/19/17 08:08 Estimated GFR > 60 ml/min 11/19/17 08:08 BUN/Creatinine Ratio 16 % 11/19/17 08:08 Glucose 81 mg/dL (65-100) 11/19/17 08:08 Calcium 8.8 mg/dL (8.4-10.2) 11/19/17 08:08 Troponin T < 0.010 ng/mL (0.00-0.029) 11/19/17 08:08 NT-Pro-B Natriuret Pep 458.6 pg/mL (0-450) H 11/19/17 08:08
[2017-11-20] MEDS ORDERED: COUMADIN PO SCH (10:00)
--- NOTE | 2017-11-20 11:13 | Consultation ---
History of Present Illness Consult date: 11/20/17 Requesting physician: AMITA GLOVER Consult reason: other (mitral valve disease) History of present illness: The pt is a 47 YO female with a past medical history significant for symptomatic MS s/p mechanical mitral valve replacement 06/2017, anticoagulated with coumadin, CLINT (noncompliant with PM CPAP), HTN, morbid obesity. She is followed in our office by Dr. Monroe. She presented with c/o progressively worsening SOB and SMITH for the past 2-3 months. She was seen in Dr. Pacheco' s office yesterday and was sent to ED for further marilyn/management. She denies any chest pain, palpitations, n/v, diaphoresis, dizziness or syncope. CXR following admission showed mild bibasilar atelectasis; pro-BNP 458. INR on admission 1.96. Echo done 07/2017 showed EF 60-65%, AV tricuspid and sclerotic, mild with peak gradient of 18.6mmHg, mean gradient of 10.3mmHg, MARYURI 1.84, mildly dilated LA, mechanical prosthesis well seated in the mitral position. Past History Past Medical History: GERD, hypertension, other (CLINT; obesity) Past Surgical History: valve replacement (mechanical MV 06/2017) Social history: single. denies: smoking, alcohol abuse, prescription drug abuse Family history: hypertension Medications and Allergies Allergies Allergy/AdvReac Type Severity Reaction Status Date / Time No Known Allergies Allergy Verified 04/22/17 08:49 Home Medications Medication Instructions Recorded Confirmed Last Taken Type Aspirin [Aspirin TAB] 325 mg PO QDAY 04/22/17 11/19/17 11/19/17 History ALBUTEROL Inhaler [Proair] 2 puff IH QID PRN 11/19/17 11/19/17 11/19/17 History Aspirin [Lo-Dose Aspirin EC] 81 mg PO DAILY 11/19/17 11/19/17 11/19/17 History Metoprolol [Lopressor] 25 mg PO DAILY 11/19/17 11/19/17 11/19/17 History Multivitamin with Folic Acid [One 400 mcg PO DAILY 11/19/17 11/19/17 11/19/17 History Daily Multivitamin Tablet] Warfarin [Coumadin] 7.5 mg PO QDAY 11/19/17 11/19/17 11/19/17 History Active Meds: Active Medications Acetaminophen (Tylenol) 650 mg PO Q4H PRN PRN Reason: Pain MILD(1-3)/Fever >100.5/ALLEN Albuterol (Proventil) 2.5 mg IH Q4HRT PRN PRN Reason: Shortness Of Breath Aspirin (Aspirin) 325 mg PO QDAY [facility] Last Admin: 11/20/17 09:12 Dose: 325 mg Azithromycin (Zithromax) 500 mg PO QDAY [facility] Azithromycin 500 mg/ Sodium (Chloride) 250 mls @ 250 mls/hr IV Q24HR [facility] Stop: 11/20/17 13:59 Last Admin: 11/20/17 09:31 Dose: 250 mls/hr Methylprednisolone Sodium Succinate (Solu-Medrol) 40 mg IV Q12HR [facility] Last Admin: 11/20/17 09:14 Dose: 40 mg Metoprolol Tartrate (Lopressor) 25 mg PO DAILY [facility] Last Admin: 11/20/17 09:13 Dose: 25 mg Multivitamins (Theragran Tab) 1 each PO DAILY [facility] Last Admin: 11/19/17 15:25 Dose: 1 each Ondansetron HCl (Zofran) 4 mg IV Q8H PRN PRN Reason: Nausea And Vomiting Sodium Chloride (Sodium Chloride Flush Syringe 10 Ml) 10 ml IV BID [facility] Last Admin: 11/19/17 22:21 Dose: 10 ml Sodium Chloride (Sodium Chloride Flush Syringe 10 Ml) 10 ml IV PRN PRN PRN Reason: LINE FLUSH Warfarin Sodium (Coumadin) 7.5 mg PO DAILY@1700 [facility] Last Admin: 11/19/17 17:07 Dose: 7.5 mg Review of Systems Constitutional: no weight loss, no weight gain, no fever, no chills, no sweats Ears, nose, mouth and throat: no ear pain, no nose pain, no sinus pressure, no sinus pain Cardiovascular: shortness of breath, dyspnea on exertion, high blood pressure, decreased exercise tolerance, no chest pain, no orthopnea, no palpitations, no rapid/irregular heart beat, no syncope, no lightheadedness Respiratory: shortness of breath, dyspnea on exertion, no cough, no congestion, no wheezing, no pain on inspiration Gastrointestinal: no abdominal pain, no nausea, no vomiting, no diarrhea, no constipation, no change in bowel habits Genitourinary Female: no pelvic pain, no flank pain, no dysuria, no urinary frequency, no urgency Musculoskeletal: no neck stiffness, no neck pain, no shooting arm pain, no arm numbness/tingling, no low back pain, no shooting leg pain, no leg numbness/ tingling, no redness of joints Integumentary: no rash, no pruritis, no redness, no sores, no wounds Neurological: no head injury, no paralysis, no weakness, no parathesias, no numbness, no tingling, no seizures, no syncope Psychiatric: no anxiety Endocrine: no cold intolerance, no heat intolerance Hematologic/Lymphatic: no easy bruising, no easy bleeding, no lymphadenopathy Allergic/Immunologic: no urticaria, no wheezing, no persistent infections Physical Examination Vital Signs Temp Pulse Resp BP Pulse Ox 98.3 F 70 18 150/95 96 11/19/17 07:46 11/19/17 07:46 11/19/17 07:46 11/19/17 07:46 11/19/17 07:46 General appearance: no acute distress HEENT: Positive: PERRL, Normocephaly, Mucus Membranes Moist Neck: Positive: neck supple, trachea midline Cardiac: Positive: Reg Rate and Rhythm, S1/S2, Systolic Murmur, Other (valve click) Lungs: Positive: Decreased Breath Sounds Neuro: Positive: Grossly Intact Abdomen: Positive: Soft. Negative: Tender Skin: Positive: Clear. Negative: Rash, Wound Musculoskeletal: No Fluid Collection, No Pain, Normal Range of Motion Extremities: Absent: edema Results 11/19/17 08:08 11/19/17 08:08 Coagulation 11/20/17 Range/Units 05:40 PT 26.2 H (12.2-14.9) Sec. INR 2.23 H (0.87-1.13) - Imaging and Cardiology Echo: pending, report reviewed (07/2017 showed EF 60-65%, AV tricuspid and sclerotic, mild with peak gradient of 18.6mmHg, mean gradient of 10.3mmHg, MARYURI 1.84, mildly dilated LA, mechanical prosthesis well seated in the mitral position) EKG: report reviewed, image reviewed EKG interpretations - Telemetry EKG Rhythm: Sinus Rhythm - EKG Sinus rhythms and dysrhythmias: sinus rhythm Assessment and Plan Assessment: SOB / SMITH Symptomatic MS s/p mechanical mitral valve replacement 06/2017 Anticoagulated with coumadin CLINT (noncompliant with PM CPAP) HTN Mild Morbid obesity Plan: No current clinical evidence of acute HF. F/u echo. Optimize anti-hypertensive regimen - increase lopressor to 25mg PO BID. Cont coumadin with tx INR 2.8-3.2. Await pulmonary recommendations. The patient has been seen in conjunction with Dr. Apple who agree with the assessment and plan of care.
--- NOTE | 2017-11-20 13:08 | Event Note ---
Date: 11/20/[address] Ibarra in office. Changing consult.
--- NOTE | 2017-11-20 14:26 | Cat Scan Report ---
CTA CHEST: HISTORY: Dyspnea. COMPARISON: none. TECHNIQUE: Helical CT in 1.25mm intervals following IV contrast. Pulmonary embolus protocol. Sagittal and coronal reformatted images. Rotational MIP images. FINDINGS: Contrast bolus is satisfactory. No pulmonary embolus is identified. Thyroid gland: Normal. Tracheobronchial tree: Normal. Esophagus: Normal. Heart: Mild cardiomegaly. Mitral valve replacement changes are identified. Pericardium: Normal. Mediastinum: Normal. Lung Beltran: Minor bibasilar atelectasis is identified. The lungs are clear otherwise. Pleural Spaces: Normal. Musculoskeletal: Normal. IMPRESSION: No evidence for pulmonary embolus. Mild cardiomegaly. Minor bibasilar atelectasis.
[2017-11-20] MEDS: SODIUM CHLORIDE FLUSH SYRINGE 10 ML IV SCH ×2 (16:32→22:26)
[2017-11-20] MEDS: COUMADIN PO SCH (16:32)
[2017-11-20] MEDS: THERAGRAN Tab PO SCH (16:33)
--- NOTE | 2017-11-20 19:35 | Consultation ---
History of Present Illness Consult date: 11/20/17 Reason for consult: dyspnea, chest pain, asthma, pulmonary hypertension, obstructive sleep apnea History of present illness: This is 47 year old female Morbidly Obese came to office with shortness of breath at rest and on exertion. Patient recently has Mitral valve replacement. Patient has multiple medical problems, Hypertension, GERD, CLINT and Possible Obesity Hypoventilation.Patient having increased shortness of breath for 2 months. It is worse last 1 week. Patient also complained peripheral edema.Patient denies alcohol or drug abuse.Patient is single and has one chids. Patient is PROJECT MANAGEMENT PROFESSIONAL. Patient has no known drug allergies.Patient presently on Coumadin. Patient was sent to ER for admission. Patient has Angio CT of chest reported No pulmonary emboli. Obtaining ABGs. Cardiology consulted.Patient complaining symptoms of sleep apnea. Past History Past Medical History: GERD, hypertension, other (CLINT; obesity) Past Surgical History: valve replacement (mechanical MV 06/2017) Social history: single. denies: smoking, alcohol abuse, prescription drug abuse Family history: hypertension Medications and Allergies Allergies Allergy/AdvReac Type Severity Reaction Status Date / Time No Known Allergies Allergy Verified 04/22/17 08:49 Home Medications Medication Instructions Recorded Confirmed Last Taken Type Aspirin [Aspirin TAB] 325 mg PO QDAY 04/22/17 11/19/17 11/19/17 History ALBUTEROL Inhaler [Proair] 2 puff IH QID PRN 11/19/17 11/19/17 11/19/17 History Aspirin [Lo-Dose Aspirin EC] 81 mg PO DAILY 11/19/17 11/19/17 11/19/17 History Metoprolol [Lopressor] 25 mg PO DAILY 11/19/17 11/19/17 11/19/17 History Multivitamin with Folic Acid [One 400 mcg PO DAILY 11/19/17 11/19/17 11/19/17 History Daily Multivitamin Tablet] Warfarin [Coumadin] 7.5 mg PO QDAY 11/19/17 11/19/17 11/19/17 History Active Meds: Active Medications Acetaminophen (Tylenol) 650 mg PO Q4H PRN PRN Reason: Pain MILD(1-3)/Fever >100.5/ALLEN Albuterol (Proventil) 2.5 mg IH Q4HRT PRN PRN Reason: Shortness Of Breath Aspirin (Aspirin) 325 mg PO QDAY [facility] Last Admin: 11/20/17 09:12 Dose: 325 mg Azithromycin (Zithromax) 500 mg PO QDAY [facility] Methylprednisolone Sodium Succinate (Solu-Medrol) 40 mg IV Q12HR [facility] Last Admin: 11/20/17 09:14 Dose: 40 mg Metoprolol Tartrate (Lopressor) 25 mg PO BID [facility] Multivitamins (Theragran Tab) 1 each PO DAILY [facility] Last Admin: 11/20/17 16:33 Dose: 1 each Ondansetron HCl (Zofran) 4 mg IV Q8H PRN PRN Reason: Nausea And Vomiting Sodium Chloride (Sodium Chloride Flush Syringe 10 Ml) 10 ml IV BID [facility] Last Admin: 11/20/17 16:32 Dose: 10 ml Sodium Chloride (Sodium Chloride Flush Syringe 10 Ml) 10 ml IV PRN PRN PRN Reason: LINE FLUSH Warfarin Sodium (Coumadin) 7.5 mg PO DAILY@1700 [facility] Last Admin: 11/20/17 16:32 Dose: 7.5 mg Review of Systems All systems: negative Physical Examination Vital signs: Vital Signs Temp Pulse Resp BP Pulse Ox 98.3 F 70 18 150/95 96 11/19/17 07:46 11/19/17 07:46 11/19/17 07:46 11/19/17 07:46 11/19/17 07:46 General appearance: no acute distress, alert Eyes: non-icteric ENT: oropharynx moist Neck: supple, no JVD Ascultation: Bilateral: diminished breath sounds Cardiovascular: regular rate and rhythm Gastrointestinal: normoactive bowel sounds, soft, non-tender Integumentary: normal Extremities: no cyanosis, edema Musculoskeletal: no deformities Gait: other (Patient is in the bed at this time.) normal mental status, non-focal exam, pupils equal and round, CN II-XII normal mood appropriate Results - Laboratory Findings CBC and BMP: 11/19/17 08:08 11/19/17 08:08 PT/INR, D-dimer PT 26.2 Sec. (12.2-14.9) H 11/20/17 05:40 INR 2.23 (0.87-1.13) H 11/20/17 05:40 Abnormal lab findings: Abnormal Labs 11/19/17 11/19/17 11/19/17 08:08 08:08 08:08 RBC 5.26 H Hct 43.6 H MCH 26 L RDW 22.1 H Lymph % (Auto) 36.1 H [place] % (Auto) 13.0 H PT 23.6 H INR 1.96 H NT-Pro-B Natriuret Pep 458.6 H 11/20/17 05:40 RBC Hct MCH RDW Lymph % (Auto) [place] % (Auto) PT 26.2 H INR 2.23 H NT-Pro-B Natriuret Pep - Diagnostic Findings Chest x-ray: report reviewed (Mild Bibasilar atelectasis.), image reviewed Assessment and Plan This is 47 year old female Morbidly Obese came to office with shortness of breath at rest and on exertion. Patient recently has Mitral valve replacement. Patient has multiple medical problems, Hypertension, GERD, CLINT and Possible Obesity Hypoventilation.Patient having increased shortness of breath for 2 months. It is worse last 1 week. Patient also complained peripheral edema.Patient denies alcohol or drug abuse.Patient is single. she has one child. Patient isCNA. Patient has no known drug allergies.Patient presently on Coumadin. Patient was sent to ER for admission. Patient has Angio CT of chest reported No pulmonary emboli. Obtaining ABGs. Cardiology consulted.Patient also complaining symptoms of sleep apnea. - Patient Problems (1) Mitral valve disease Current Visit: Yes Status: Acute Plan to address problem: Patient has mitral valve replacement recently. (2) Morbidly obese Current Visit: Yes Status: Acute Plan to address problem: Weight reduction diet. (3) Obesity hypoventilation syndrome Current Visit: Yes Status: Acute Plan to address problem: ABGs on room air. Possible Obesity Hypoventilation. Recommend sleep study as out patient. (4) Asthma exacerbation Current Visit: Yes Status: Acute Plan to address problem: ABGs on room air. O2 2 litres via nasal canula. Decide CPAP or BIPAP during night time based on ABG results. Continue Albuterol aerosol treatments Continue I/V solumedrol. Continue Zithromax. (5) Obstructive sleep apnea Current Visit: Yes Status: Acute Plan to address problem: Recommend sleep study as out patient.
[2017-11-21 07:18] LABS: INR 2.97 (0.87-1.13)
--- NOTE | 2017-11-21 10:31 | Progress Note ---
Assessment and Plan Assessment and plan: Acute hypoxemic Respiratory failure Supplemental oxygen, nebulizer therapy, pulse oximetry, NIPPV as clinically indicated. CTA of the chest negative for PE. Pulmonary following.. COPD with exacerbation supplemental oxygen, nebulizer therapy, IV antibiotic therapy, IV steroid therapy, Pulmonary hypertension supplemental oxygen, pain control, outpatient pulmonary f/U care. Patient currently on Coumadin Hypertension Lopressor increased to 25 mg twice a day Mitral valve disease Cardiology following, supplemental oxygen, supportive care. S/P MVR at [facility] 06/17 for mitral valve stenosis. Follow-up repeat echocardiogram Morbidly obese balanced diet, increased physical activity at discharge, Outpatient bariatric surgery f/u. Obesity hypoventilation syndrome supplemental oxygen, nebulizer therapy, NIPPV as clinically indicated, incentive spirometry, pulmonary toilet. DVT prophylaxis Patient on Coumadin History Interval history: No new issues overnight. Hospitalist Physical - Constitutional Vitals: Temp Pulse Resp BP Pulse Ox 97.8 F 63 16 170/96 96 11/21/17 07:53 11/21/17 07:53 11/21/17 08:04 11/21/17 07:53 11/21/17 07:53 General appearance: Present: no acute distress - EENT Eyes: Present: PERRL, EOM intact ENT: hearing intact, clear oral mucosa, dentition normal - Neck Neck: Present: supple, normal ROM - Respiratory Respiratory effort: normal Respiratory: bilateral: CTA - Cardiovascular Rhythm: regular Heart Sounds: Present: S1 & S2. Absent: gallop, rub - Extremities Extremities: no ischemia, No edema, Full ROM - Abdominal General gastrointestinal: soft, non-tender, non-distended, normal bowel sounds - Integumentary Integumentary: Present: clear, warm, dry - Neurologic Neurologic: CNII-XII intact, moves all extremities Results - Labs CBC & Chem 7: 11/19/17 08:08 11/19/17 08:08 Labs: Laboratory Last Values WBC 5.4 K/mm3 (4.5-11.0) 11/19/17 08:08 RBC 5.26 M/mm3 (3.65-5.03) H 11/19/17 08:08 Hgb 13.9 gm/dl (10.1-14.3) 11/19/17 08:08 Hct 43.6 % (30.3-42.9) H 11/19/17 08:08 MCV 83 fl (79-97) 11/19/17 08:08 MCH 26 pg (28-32) L 11/19/17 08:08 MCHC 32 % (30-34) 11/19/17 08:08 RDW 22.1 % (13.2-15.2) H 11/19/17 08:08 Plt Count 256 K/mm3 (140-440) 11/19/17 08:08 Lymph % (Auto) 36.1 % (13.4-35.0) H 11/19/17 08:08 Rawlins % (Auto) 13.0 % (0.0-7.3) H 11/19/17 08:08 Eos % (Auto) 3.0 % (0.0-4.3) 11/19/17 08:08 Baso % (Auto) 0.8 % (0.0-1.8) 11/19/17 08:08 Lymph # 1.9 K/mm3 (1.2-5.4) 11/19/17 08:08 Rawlins # 0.7 K/mm3 (0.0-0.8) 11/19/17 08:08 Eos # 0.2 K/mm3 (0.0-0.4) 11/19/17 08:08 Baso # 0.0 K/mm3 (0.0-0.1) 11/19/17 08:08 Seg Neutrophils % 47.1 % (40.0-70.0) 11/19/17 08:08 Seg Neutrophils # 2.5 K/mm3 (1.8-7.7) 11/19/17 08:08 PT 33.0 Sec. (12.2-14.9) H 11/21/17 06:06 INR 2.97 (0.87-1.13) H 11/21/17 06:06 APTT 33.5 Sec. (24.2-36.6) 11/19/17 08:08 POC ABG pH 7.410 (7.35-7.45) 11/21/17 08:17 POC ABG pCO2 44.6 (35-45) 11/21/17 08:17 POC ABG pO2 91 (80-105) 11/21/17 08:17 POC ABG HCO3 28.3 11/21/17 08:17 POC ABG Total CO2 30 11/21/17 08:17 POC ABG O2 Sat 97 11/21/17 08:17 POC ABG Base Excess 4 11/21/17 08:17 FiO2 21 % 11/21/17 08:17 Sodium 139 mmol/L (137-145) 11/19/17 08:08 Potassium 4.6 mmol/L (3.6-5.0) 11/19/17 08:08 Chloride 99.4 mmol/L (98-107) 11/19/17 08:08 Carbon Dioxide 30 mmol/L (22-30) 11/19/17 08:08 Anion Gap 14 mmol/L 11/19/17 08:08 BUN 11 mg/dL (7-17) 11/19/17 08:08 Creatinine 0.7 mg/dL (0.7-1.2) 11/19/17 08:08 Estimated GFR > 60 ml/min 11/19/17 08:08 BUN/Creatinine Ratio 16 % 11/19/17 08:08 Glucose 81 mg/dL (65-100) 11/19/17 08:08 Calcium 8.8 mg/dL (8.4-10.2) 11/19/17 08:08 Troponin T < 0.010 ng/mL (0.00-0.029) 11/19/17 08:08 NT-Pro-B Natriuret Pep 458.6 pg/mL (0-450) H 11/19/17 08:08
[2017-11-21] MEDS: SODIUM CHLORIDE FLUSH SYRINGE 10 ML IV SCH ×2 (11:35→21:39)
[2017-11-21] MEDS: THERAGRAN Tab PO SCH (11:35)
[2017-11-21] MEDS: ASPIRIN PO SCH (11:35)
[2017-11-21] MEDS: ZITHROMAX PO SCH (11:35)
[2017-11-21] MEDS: LOPRESSOR PO SCH ×2 (11:36→21:39)
--- NOTE | 2017-11-21 14:30 | Progress Note ---
Assessment and Plan This is 47 year old female Morbidly Obese came to office with shortness of breath at rest and on exertion. Patient recently has Mitral valve replacement. Patient has multiple medical problems, Hypertension, GERD, CLINT and Possible Obesity Hypoventilation.Patient having increased shortness of breath for 2 months. It is worse last 1 week. Patient also complained peripheral edema.Patient denies alcohol or drug abuse. Patient has no known drug allergies.Patient presently on Coumadin. Patient was sent to ER for admission. Patient has Angio CT of chest reported No pulmonary emboli. Obtaining ABGs. Cardiology consulted. 11/21/17 atient alert, awake. resting on room air.Says breathing better.O2 saturation 92% . Recommend O2 2 litres via nasal canula. - Patient Problems (1) Mitral valve disease Current Visit: Yes Status: Acute Plan to address problem: Patient has mitral valve replacement recently. (2) Morbidly obese Current Visit: Yes Status: Acute Plan to address problem: Weight reduction diet. (3) Obesity hypoventilation syndrome Current Visit: Yes Status: Acute Plan to address problem: Abgs reported PCO2 45 on room air while awake. Not quiet meet the criteria forObesity Hypoventilation.It is moving in that direction. Recommend sleep study as out patient. (4) Asthma exacerbation Current Visit: Yes Status: Acute Plan to address problem: O2 2 litres via nasal canula. Decide CPAP or BIPAP during night time based on ABG results. Continue Albuterol aerosol treatments Continue I/V solumedrol. Continue Zithromax. (5) Obstructive sleep apnea Current Visit: Yes Status: Acute Plan to address problem: Recommend sleep study as out patient. Subjective Date of service: 11/21/17 Interval history: Patient alert, awake. resting on room air.Says breathing better.O2 saturation 92 %. Recommend O2 2 litres via nasal canula. Objective Vital Signs - 12hr 11/21/17 11/21/17 11/21/17 04:35 07:53 08:04 Temperature 98.2 F 97.8 F Pulse Rate 58 L 63 Respiratory 18 20 16 Rate Blood Pressure 154/90 170/96 O2 Sat by Pulse 91 96 Oximetry 11/21/17 11/21/17 10:00 11:43 Temperature 98.0 F Pulse Rate 69 Respiratory 19 Rate Blood Pressure 164/92 O2 Sat by Pulse 98 97 Oximetry Constitutional: no acute distress, alert Eyes: non-icteric ENT: oropharynx moist Neck: supple, no JVD Ascultation: Bilateral: diminished breath sounds Cardiovascular: regular rate and rhythm Gastrointestinal: normoactive bowel sounds, soft, non-tender Integumentary: normal Extremities: no cyanosis, edema Neurologic: normal mental status, non-focal exam, pupils equal and round, CN II- XII normal Psychiatric: mood appropriate CBC and BMP: 11/19/17 08:08 11/19/17 08:08 ABG, PT/INR, D-dimer: ABG POC ABG pH 7.410 (7.35-7.45) 11/21/17 08:17 POC ABG pCO2 44.6 (35-45) 11/21/17 08:17 POC ABG pO2 91 (80-105) 11/21/17 08:17 POC ABG HCO3 28.3 11/21/17 08:17 POC ABG Total CO2 30 11/21/17 08:17 POC ABG O2 Sat 97 11/21/17 08:17 PT/INR, D-dimer PT 33.0 Sec. (12.2-14.9) H 11/21/17 06:06 INR 2.97 (0.87-1.13) H 11/21/17 06:06 Abnormal lab findings: Abnormal Labs 11/19/17 11/19/17 11/19/17 08:08 08:08 08:08 RBC 5.26 H Hct 43.6 H MCH 26 L RDW 22.1 H Lymph % (Auto) 36.1 H Sumner % (Auto) 13.0 H PT 23.6 H INR 1.96 H NT-Pro-B Natriuret Pep 458.6 H 11/20/17 11/21/17 05:40 06:06 RBC Hct MCH RDW Lymph % (Auto) Sumner % (Auto) PT 26.2 H 33.0 H INR 2.23 H 2.97 H NT-Pro-B Natriuret Pep
--- NOTE | 2017-11-21 14:38 | Progress Note ---
Assessment and Plan Assessment: Asthma exacerbation Symptomatic MS s/p mechanical mitral valve replacement 06/2017 Anticoagulated with coumadin CLINT (noncompliant with PM CPAP) HTN Mild Morbid obesity Plan: Echo reviewed with [facility]. Currently stable cardiac status. No current clinical evidence of acute heart failure. Pt may discharge home from cardiology standpoint. Cont coumadin with tx INR 2.8-3.2. Follow up in our [place] office with Dr. Monroe on 12/10/2017 @ 10:15AM. The patient has been seen in conjunction with Dr. Apple who agree with the assessment and plan of care. Subjective Date of service: 11/21/17 Principal diagnosis: SOB Interval history: pt seen in echo dept. still c/o intermittent SOB without any clear aggravating or alleviating factors. Objective Last Vital Signs Temp 98.0 F 11/21/17 11:43 Pulse 69 11/21/17 11:43 Resp 19 11/21/17 11:43 BP 164/92 11/21/17 11:43 Pulse Ox 97 11/21/17 11:43 - Physical Examination General: No Apparent Distress HEENT: Positive: PERRL, Normocephaly, Mucus Membranes Moist Neck: Positive: neck supple, trachea midline Cardiac: Positive: Reg Rate and Rhythm, S1/S2 Lungs: Positive: Decreased Breath Sounds Neuro: Positive: Grossly Intact Abdomen: Positive: Soft. Negative: Tender Skin: Positive: Clear. Negative: Rash, Wound Musculoskeletal: No Fluid Collection, No Pain, Normal Range of Motion Extremities: Absent: edema - Labs and Meds Coagulation 11/21/17 Range/Units 06:06 PT 33.0 H (12.2-14.9) Sec. INR 2.97 H (0.87-1.13) - Imaging and Cardiology EKG: report reviewed, image reviewed Echo: report reviewed (07/2017 showed EF 60-65%, AV tricuspid and sclerotic, mild with peak gradient of 18.6mmHg, mean gradient of 10.3mmHg, MARYURI 1.84, mildly dilated LA, mechanical prosthesis well seated in the mitral position) - Telemetry EKG Rhythm: Sinus Rhythm - EKG Sinus rhythms and dysrhythmias: sinus rhythm
[2017-11-21] MEDS ORDERED: COUMADIN PO SCH (17:00)
[2017-11-22] MEDS ORDERED: ALUM-MAG HYDROX-SIMETH 200-200-20MG/5ML PO PRN (02:49)
[2017-11-22 06:48] LABS: Basophils % (Auto) 0.1 % (0.0-1.8); Lymphocytes # (Auto) 1.4 K/mm3 (1.2-5.4); Lymphocytes % (Auto) 18.8 % (13.4-35.0); Mean Corpuscular HGB Conc 31 % (30-34); Mean Corpuscular Volume 85 fl (79-97); Monocytes # (Auto) 0.3 K/mm3 (0.0-0.8); Monocytes % (Auto) 4.6 % (0.0-7.3); Platelet Count 258 K/mm3 (140-440); Red Blood Count 5.25 M/mm3 (3.65-5.03)
[2017-11-22 06:56] LABS: INR 3.43 (0.87-1.13)
[2017-11-22 07:00] LABS: Hematocrit 44.3 % (30.3-42.9); Hemoglobin 13.6 gm/dl (10.1-14.3); Mean Corpuscular Hemoglobin 26 pg (28-32); Red Cell Distribution Width 22.4 % (13.2-15.2)
[2017-11-22 07:04] LABS: BUN/Creatinine Ratio 18; Blood Urea Nitrogen 11 mg/dL (7-17); Calcium 8.4 mg/dL (8.4-10.2); Hemolysis Index 6
[2017-11-22] MEDS: ASPIRIN PO SCH (09:16)
[2017-11-22] MEDS: LOPRESSOR PO SCH (09:16)
[2017-11-22] MEDS: ZITHROMAX PO SCH (09:16)
[2017-11-22] MEDS: THERAGRAN Tab PO SCH (09:18)
[2017-11-22] MEDS: SODIUM CHLORIDE FLUSH SYRINGE 10 ML IV SCH (09:18)
--- NOTE | 2017-11-22 09:23 | Progress Note ---
History Interval history: No new issues overnight. Hospitalist Physical - Constitutional Vitals: Temp Pulse Resp BP Pulse Ox 97.7 F 55 L 24 165/93 96 11/22/17 08:20 11/22/17 09:16 11/22/17 08:20 11/22/17 09:16 11/22/17 08:20 General appearance: Present: no acute distress Results - Labs CBC & Chem 7: 11/22/17 05:32 11/22/17 05:32 Labs: Laboratory Last Values WBC 7.4 K/mm3 (4.5-11.0) 11/22/17 05:32 RBC 5.25 M/mm3 (3.65-5.03) H 11/22/17 05:32 Hgb 13.6 gm/dl (10.1-14.3) 11/22/17 05:32 Hct 44.3 % (30.3-42.9) H 11/22/17 05:32 MCV 85 fl (79-97) 11/22/17 05:32 MCH 26 pg (28-32) L 11/22/17 05:32 MCHC 31 % (30-34) 11/22/17 05:32 RDW 22.4 % (13.2-15.2) H 11/22/17 05:32 Plt Count 258 K/mm3 (140-440) 11/22/17 05:32 Lymph % (Auto) 18.8 % (13.4-35.0) 11/22/17 05:32 Arthur % (Auto) 4.6 % (0.0-7.3) 11/22/17 05:32 Eos % (Auto) 0.0 % (0.0-4.3) 11/22/17 05:32 Baso % (Auto) 0.1 % (0.0-1.8) 11/22/17 05:32 Lymph # 1.4 K/mm3 (1.2-5.4) 11/22/17 05:32 Arthur # 0.3 K/mm3 (0.0-0.8) 11/22/17 05:32 Eos # 0.0 K/mm3 (0.0-0.4) 11/22/17 05:32 Baso # 0.0 K/mm3 (0.0-0.1) 11/22/17 05:32 Seg Neutrophils % 76.5 % (40.0-70.0) H 11/22/17 05:32 Seg Neutrophils # 5.6 K/mm3 (1.8-7.7) 11/22/17 05:32 PT 37.0 Sec. (12.2-14.9) H 11/22/17 05:32 INR 3.43 (0.87-1.13) H 11/22/17 05:32 APTT 33.5 Sec. (24.2-36.6) 11/19/17 08:08 POC ABG pH 7.410 (7.35-7.45) 11/21/17 08:17 POC ABG pCO2 44.6 (35-45) 11/21/17 08:17 POC ABG pO2 91 (80-105) 11/21/17 08:17 POC ABG HCO3 28.3 11/21/17 08:17 POC ABG Total CO2 30 11/21/17 08:17 POC ABG O2 Sat 97 11/21/17 08:17 POC ABG Base Excess 4 11/21/17 08:17 FiO2 21 % 11/21/17 08:17 Sodium 139 mmol/L (137-145) 11/22/17 05:32 Potassium 4.5 mmol/L (3.6-5.0) 11/22/17 05:32 Chloride 98.6 mmol/L (98-107) 11/22/17 05:32 Carbon Dioxide 29 mmol/L (22-30) 11/22/17 05:32 Anion Gap 16 mmol/L 11/22/17 05:32 BUN 11 mg/dL (7-17) 11/22/17 05:32 Creatinine 0.6 mg/dL (0.7-1.2) L 11/22/17 05:32 Estimated GFR > 60 ml/min 11/22/17 05:32 BUN/Creatinine Ratio 18 % 11/22/17 05:32 Glucose 120 mg/dL (65-100) H 11/22/17 05:32 Calcium 8.4 mg/dL (8.4-10.2) 11/22/17 05:32 Troponin T < 0.010 ng/mL (0.00-0.029) 11/19/17 08:08 NT-Pro-B Natriuret Pep 458.6 pg/mL (0-450) H 11/19/17 08:08
--- NOTE | 2017-11-22 09:32 | Discharge Summary ---
Providers - Providers Date of Admission: 11/19/17 12:27 Date of discharge: 11/22/17 Attending physician: JACINTO DELEON 11/19/17 17:35 Consult to Physician [CONS] Routine Comment: Consulting Provider: MARIA G CRUZ Physician Instructions: Reason For Exam: Mitral Valve Disease 11/20/17 13:08 Consult to Physician [CONS] Routine Comment: Consulting Provider: KEVIN PACHECO Physician Instructions: Reason For Exam: SOB, pt. known to you Primary care physician: SEARCH ENGINE [employer]IMIZATION STRATEGIST Hospitalization Reason for admission: dyspnea Condition: Stable Hospital course: The pt is a 47 YO female with a past medical history significant for symptomatic MS s/p mechanical mitral valve replacement 06/2017, anticoagulated with coumadin, CLINT (noncompliant with PM CPAP), HTN, morbid obesity who presented with c/o progressively worsening SOB and SMITH for the past 2-3 months. She was seen in Dr. Pacheco's office on the day of admission and was sent to ED for further marilyn/management. She denied any chest pain, palpitations, n/v, diaphoresis, dizziness or syncope. CXR following admission showed mild bibasilar atelectasis; pro-BNP 458. INR on admission 1.96. The patient was admitted for acute hypoxic respiratory failure likely secondary to acute exacerbation +/- CHF exac Echo done 07/2017 showed EF 60-65%, AV tricuspid and sclerotic, mild with peak gradient of 18.6mmHg, mean gradient of 10.3mmHg, MARYURI 1.84, mildly dilated LA, mechanical prosthesis well seated in the mitral position. The patient was seen by pulmonary and cardiology consultation. CTA of the chest was negative for pulmonary embolus. The patient was noted to be noncompliant with CPAP at night for her CLINT which is likely contributing to her dyspnea. Cardiology felt that the respiratory failure was all related to asthma exacerbation with no evidence of acute heart failure. The patient received appropriate bronchodilators and systemic/IV steroids. Patient had significant improvement throughout hospitalization. Dedicated discharge time 32 minutes. Disposition: - TO HOME OR SELFCARE Time spent for discharge: 32 - Discharge Diagnoses (1) Asthma exacerbation Status: Acute (2) Dyspnea Status: Acute Qualifiers: Dyspnea type: shortness of breath Qualified Code(s): R06.02 - Shortness of breath; R06.00 - Dyspnea, unspecified; R06.01 - Orthopnea (3) Hypertension Status: Acute Qualifiers: Hypertension type: essential hypertension Qualified Code(s): I10 - Essential (primary) hypertension (4) Mitral valve disease Status: Acute (5) Morbidly obese Status: Acute (6) Obesity hypoventilation syndrome Status: Acute (7) Obstructive sleep apnea Status: Acute (8) Pulmonary hypertension Status: Acute Core Measure Documentation - Palliative Care Palliative Care/ Comfort Measures: Not Applicable - Core Measures Any of the following diagnoses?: none Exam - Constitutional Vitals: Temp Pulse Resp BP Pulse Ox 97.7 F 55 L 24 165/93 96 11/22/17 08:20 11/22/17 09:16 11/22/17 08:20 11/22/17 09:16 11/22/17 08:20 General appearance: Present: no acute distress, well-nourished - EENT Eyes: Present: PERRL ENT: hearing intact, clear oral mucosa - Neck Neck: Present: supple, normal ROM - Respiratory Respiratory effort: normal Respiratory: bilateral: CTA - Cardiovascular Heart Sounds: Present: S1 & S2. Absent: rub, click - Extremities Extremities: pulses symmetrical, No edema Peripheral Pulses: within normal limits - Abdominal General gastrointestinal: Present: soft, non-tender, non-distended, normal bowel sounds Female genitourinary: Present: normal - Integumentary Integumentary: Present: clear, warm, dry - Musculoskeletal Musculoskeletal: gait normal, strength equal bilaterally - Psychiatric Psychiatric: appropriate mood/affect, intact judgment & insight - Neurologic Neurologic: CNII-XII intact, moves all extremities Plan Activity: advance as tolerated Weight Bearing Status: Weight Bear as Tolerated Diet: regular Follow up with: CARRIE RICHMOND MD [Staff Physician] - 7 Days (Dr. Richmond on 12/10/2017 @ 10:15AM) PRIMARY CAREMD [Primary Care Provider] - 3-5 Days Forms: Warfarin Discharge Instruction Prescriptions: ALBUTEROL Inhaler [ProAir HFA Inhaler] 2 puff IH QID PRN #30 inha PRN Reason: Shortness Of Breath Aspirin [Lo-Dose Aspirin EC] 81 mg PO DAILY #30 tablet. Azithromycin [Zithromax TAB] 500 mg PO QDAY #5 tablet Metoprolol [Lopressor TAB] 25 mg PO DAILY #30 tablet Multivitamin with Folic Acid [One Daily Multivitamin Tablet] 400 mcg PO DAILY # 30 tablet Warfarin [Coumadin] 7.5 mg PO QDAY #30 tablet
--- NOTE | 2017-11-22 10:58 | Progress Note ---
Assessment and Plan - Patient Problems (1) Mitral valve disease Status: Acute (2) Morbidly obese Status: Acute (3) Obesity hypoventilation syndrome Status: Acute (4) Asthma exacerbation Status: Acute Plan to address problem: . (5) Obstructive sleep apnea Status: Acute Subjective Date of service: 11/22/17 Principal diagnosis: SOB Interval history: Patient already discharged. Objective Vital Signs - 12hr 11/21/17 11/22/17 11/22/17 23:00 08:20 09:16 Temperature 98.2 F 97.7 F Pulse Rate 57 L 54 L 55 L Respiratory 18 24 Rate Blood Pressure 169/93 165/93 165/93 O2 Sat by Pulse 96 96 Oximetry Extremities: edema CBC and BMP: 11/22/17 05:32 11/22/17 05:32 ABG, PT/INR, D-dimer: ABG POC ABG pH 7.410 (7.35-7.45) 11/21/17 08:17 POC ABG pCO2 44.6 (35-45) 11/21/17 08:17 POC ABG pO2 91 (80-105) 11/21/17 08:17 POC ABG HCO3 28.3 11/21/17 08:17 POC ABG Total CO2 30 11/21/17 08:17 POC ABG O2 Sat 97 11/21/17 08:17 PT/INR, D-dimer PT 37.0 Sec. (12.2-14.9) H 11/22/17 05:32 INR 3.43 (0.87-1.13) H 11/22/17 05:32 Abnormal lab findings: Abnormal Labs 11/19/17 11/19/17 11/19/17 08:08 08:08 08:08 RBC 5.26 H Hct 43.6 H MCH 26 L RDW 22.1 H Lymph % (Auto) 36.1 H Clark % (Auto) 13.0 H Seg Neutrophils % PT 23.6 H INR 1.96 H Creatinine Glucose NT-Pro-B Natriuret Pep 458.6 H 11/20/17 11/21/17 11/22/17 05:40 06:06 05:32 RBC Hct MCH RDW Lymph % (Auto) Clark % (Auto) Seg Neutrophils % PT 26.2 H 33.0 H 37.0 H INR 2.23 H 2.97 H 3.43 H Creatinine Glucose NT-Pro-B Natriuret Pep 11/22/17 11/22/17 05:32 05:32 RBC 5.25 H Hct 44.3 H MCH 26 L RDW 22.4 H Lymph % (Auto) Clark % (Auto) Seg Neutrophils % 76.5 H PT INR Creatinine 0.6 L Glucose 120 H NT-Pro-B Natriuret Pep
[2017-11-22 12:24] VITALS: BP 151/87
[2017-11-22] MEDS ORDERED: COUMADIN NO DOSE TODAY PO ONE (17:00)
[2017-11-22] MEDS ORDERED: COUMADIN PO SCH (17:00)
== END 2017-11-22 12:25 | disposition home or self-care (01) | DRG 189 ==
LOC: ED 07:29 → 3A 12:27
PROVIDERS: ADMIT Internal Medicine; ATTEND Hospitalist
PROC: 4A033R1 Measurement of Arterial Saturation, Peripheral, Percutaneous Approach (ICD-10-PCS; principal; 2017-11-20)
DX: J96.01 Acute respiratory failure with hypoxia (principal); J44.1 Chronic obstructive pulmonary disease with (acute) exacerbation; Z68.43 Body mass index [BMI] 50.0-59.9, adult; J98.11 Atelectasis; J45.901 Unspecified asthma with (acute) exacerbation; G47.33 Obstructive sleep apnea (adult) (pediatric); I10 Essential (primary) hypertension; E66.01 Morbid (severe) obesity due to excess calories; I05.9 Rheumatic mitral valve disease, unspecified; I27.20 Pulmonary hypertension, unspecified; K21.9 Gastro-esophageal reflux disease without esophagitis; F12.90 Cannabis use, unspecified, uncomplicated; Z79.82 Long term (current) use of aspirin; Z95.2 Presence of prosthetic heart valve; Z91.19 Patient's noncompliance with other medical treatment and regimen; Z72.89 Other problems related to lifestyle; Z79.899 Other long term (current) drug therapy; Z79.01 Long term (current) use of anticoagulants; Z82.49 Family history of ischemic heart disease and other diseases of the circulatory system
CPT/HCPCS: 36415; 71046; 71275; 80048; 82803; 83880; 84484; 85025; 85610; 85730; 93005; 93010; 93306; 94640; 96365; J0456; J2920; J3475; J7050; Q9967

== ENCOUNTER 2019-09-06 17:51 | Emergency (ER) | payer OTHER ==
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
[2019-09-06] MEDS ORDERED: HYDROcodone/ACETAMINOPHEN 5-325 MG TAB PO ONE (20:33)
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
== END 2019-09-06 22:11 | disposition home or self-care (01) ==
LOC: ED 17:51
DX: S16.1XXA Strain of muscle, fascia and tendon at neck level, initial encounter (principal); S39.012A Strain of muscle, fascia and tendon of lower back, initial encounter; I10 Essential (primary) hypertension; K21.9 Gastro-esophageal reflux disease without esophagitis; J44.9 Chronic obstructive pulmonary disease, unspecified; Z98.890 Other specified postprocedural states; Z79.899 Other long term (current) drug therapy; V49.59XA Passenger injured in collision with other motor vehicles in traffic accident, initial encounter; Y93.89 Activity, other specified; Y92.410 Unspecified street and highway as the place of occurrence of the external cause; Y99.8 Other external cause status
CPT/HCPCS: 72040; 72100

== ENCOUNTER 2020-03-12 07:06 | Emergency (ER) | payer OTHER ==
[2020-03-12 07:25] VITALS: BP 124/69
--- NOTE | 2020-03-12 10:51 | Emergency Department Report ---
Chief Complaint: Upper Respiratory Infection Stated Complaint: COVID SYMPTOMS Time Seen by Provider: 03/12/20 10:34 - HPI History of Present Illness: 49-year-old obese female presents to the emergency room complaining of intermittent coughing and phlegm that started 2 days ago. Patient states that she wanted to be tested for COVID. Patient states that she really wanted to be here with her son since he is autistic and wanted to be able to come in the back. Patient reports that she has taken allergy medicines which has help with her symptoms. Patient denies any fever chills no nausea no vomiting no diarrhea abdominal pain. - Exam Vital Signs: Vital Signs 03/12/20 07:24 Temperature 98.3 F Pulse Rate 62 Respiratory 20 Rate Blood Pressure 124/69 O2 Sat by Pulse 97 Oximetry Physical Exam: Patient is alert and oriented x3 no acute distress nontoxic in appearance and obese. Patient is ambulatory without difficulties. Patient has no respiratory distress not coughing. MSE screening note: Focused history and physical exam performed. Due to findings the following was ordered: 49-year-old obese female presents to the emergency room complaining of intermittent coughing and phlegm that started 2 days ago. Patient states that she wanted to be tested for COVID. Patient states that she really wanted to be here with her son since he is autistic and wanted to be able to come in the back. Patient reports that she has taken allergy medicines which has help with her symptoms. Patient denies any fever chills no nausea no vomiting no diarrhea abdominal pain. Patient is to follow-up with her primary care provider ED Disposition for MSE Disposition: Z- MED SCREENING EXAM-LEFT Is pt being admited?: No Does the pt Need Aspirin: No Condition: Stable Additional Instructions: Follow-up with your primary care provider. I suggest you take your allergy medications as it does help. Referrals: PRIMARY CARE,MD [Primary Care Provider] - 3-5 Days Your, primary care provider [Other] - 3-5 Days
== END 2020-03-12 10:50 | disposition left against medical advice (07) ==
LOC: ED 07:06
DX: R05 Cough (principal); Z53.21 Procedure and treatment not carried out due to patient leaving prior to being seen by health care provider